=== PATIENT | male | born 1995 | race African-American/Black ===

== ENCOUNTER 2022-03-14 10:24 | Emergency (ER) | payer OTHER ==
[~2022-03-14] VITALS: Ht 162.6 cm; Wt 68.0 kg
[2022-03-14] MEDS ORDERED: AMOX875T8 PO (11:31)
[2022-03-14 11:51] VITALS: BP 128/78; TEMP 98.3
== END 2022-03-14 11:51 | disposition home or self-care (01) ==
LOC: ED 10:24
PROC: 0HQGXZZ Repair Left Hand Skin, External Approach (ICD-10-PCS; principal; 2022-03-14)
DX: S61.217A Laceration without foreign body of left little finger without damage to nail, initial encounter (principal); W45.8XXA Other foreign body or object entering through skin, initial encounter; Y92.89 Other specified places as the place of occurrence of the external cause
CPT/HCPCS: 90715; 99283; J0696

== ENCOUNTER 2022-03-21 10:41 | Emergency (ER) | payer OTHER ==
[~2022-03-21] VITALS: Ht 162.6 cm; Wt 68.0 kg
[~2022-03-21 10:41] MED LIST: AMOX875T8 PO
[2022-03-21 10:49] VITALS: TEMP 98.9
[2022-03-21 12:15] VITALS: BP 128/88
== END 2022-03-21 12:15 | disposition home or self-care (01) ==
LOC: ED 10:41
DX: Z48.02 Encounter for removal of sutures (principal)
CPT/HCPCS: 99282